=== PATIENT | female | born 1950 | race Caucasian/White ===

== ENCOUNTER 2025-05-08 06:17 | Day surgery (SDC) | payer MEDICARE, SELFPAY | END 2025-05-08 11:37 | disposition home or self-care (01) | LOC: GI 06:17 | PROVIDERS: ATTENDING PHYSICIAN Internal Medicine Gastroenterology | DX: K22.2 Esophageal obstruction (principal); K21.00 Gastro-esophageal reflux disease with esophagitis, without bleeding; K44.9 Diaphragmatic hernia without obstruction or gangrene; K31.89 Other diseases of stomach and duodenum; R12 Heartburn | CPT/HCPCS: 43239; 88305; 88342 ==